=== PATIENT | male | born 1970 | race Caucasian/White ===

== ENCOUNTER 2025-06-10 14:37 | Emergency (ER) | payer BC | END 2025-06-10 15:55 | disposition home or self-care (01) | LOC: DL.ED 14:37 | DX: S61.240A Puncture wound with foreign body of right index finger without damage to nail, initial encounter (principal); W45.8XXA Other foreign body or object entering through skin, initial encounter | CPT/HCPCS: 64450; 73130; 99284; J0665; J2003 ==